=== PATIENT | female | born 1940 | race Two or more races ===

== ENCOUNTER 2023-12-13 13:29 | Emergency (ER) | payer OTHER ==
[~2023-12-13] VITALS: Ht 149.9 cm; Wt 54.1 kg
[2023-12-13] MEDS ORDERED: GLUCAGON EMERG KIT 1mg/1ml IV ONE (14:00)
[2023-12-13 14:14] LABS: Basophils # (auto) 0.1 10 ^3/uL (0-0.2); Eosinophils # (auto) 0.1 10 ^3/uL (0-0.8); Eosinophils % (auto) 1.2 % (0.0-7.0); Hematocrit 38.9 % (36.0-46.0); Hemoglobin 13.1 g/dL (12.2-16.2); Lymphocytes # (auto) 1.1 10 ^3/uL (0.4-5.4); Lymphocytes % (auto) 15.6 % (10.0-50.0); Mean Corpuscular Hemoglobin 29.7 pg (28.0-32.0); Mean Corpuscular Hgb Conc. 33.6 g/dL (32.0-36.0); Mean Corpuscular Volume 88.4 fL (80.0-100.0); Monocytes # (auto) 0.7 10 ^3/uL (0-1.3); Monocytes % (auto) 9.6 % (0.0-12.0); Neutrophils % (auto) 72.6 % (37.0-80.0); White Blood Cell 6.9 10^3/uL (4.4-10.8)
[2023-12-13 14:27] LABS: Chloride 105 mmol/L (98-107); Potassium 3.5 mmol/L (3.5-5.1); Sodium 140 mmol/L (136-145)
[2023-12-13 14:28] LABS: Anion Gap 7 (5-15); Carbon Dioxide 28 mmol/L (20-30)
[2023-12-13 14:29] LABS: Calcium 9.4 mg/dL (8.5-10.1)
[2023-12-13 14:33] LABS: BUN/Creatinine Ratio 19.2 (10.0-20.0); Blood Urea Nitrogen 14 mg/dL (9-23); Glucose 104 mg/dL (74-106)
[2023-12-13 14:36] LABS: INR 1.02 (0.9-1.15); Partial Thromboplastin Time 27.7 SEC (24.5-34.5); Prothrombin Time 10.7 sec (9.3-11.8)
[2023-12-13] MEDS ORDERED: LORazepam 2MG/ML-1ML VIAL IV ONE (16:00)
[2023-12-13 16:28] VITALS: PULSE 78; RESP 20; TEMP 98.1; O2SAT 95
[2023-12-13 19:36] VITALS: PULSE 71; RESP 12; O2SAT 95
[2023-12-13] MEDS ORDERED: ONDANSETRON HCL 4 MG/2 ML VIAL IV ONE (20:00)
[2023-12-13 20:28] VITALS: BP 145/62; PULSE 59; RESP 12; O2SAT 95
== END 2023-12-13 20:28 | disposition home or self-care (01) ==
LOC: ER 13:29
DX: T18.128A Food in esophagus causing other injury, initial encounter (principal); I10 Essential (primary) hypertension; Z90.710 Acquired absence of both cervix and uterus; Z79.01 Long term (current) use of anticoagulants; W44.F3XA Food entering into or through a natural orifice, initial encounter; Y93.89 Activity, other specified; Y92.89 Other specified places as the place of occurrence of the external cause; Y99.8 Other external cause status
CPT/HCPCS: 36415; 74176; 80048; 85025; 85610; 85730; 96374; 96375; 99285; J1610; J2405

== ENCOUNTER 2024-07-29 07:59 | Emergency (ER) | payer OTHER ==
[~2024-07-29] VITALS: Ht 152.4 cm; Wt 59.1 kg
[2024-07-29 09:35] VITALS: BP 92/71; PULSE 65; RESP 16; TEMP 97.9; O2SAT 96
[2024-07-29] MEDS ORDERED: IBUP1TAB5 PO (10:49)
[2024-07-29] MEDS ORDERED: HYDR-4902 PO (10:49)
== END 2024-07-29 11:25 | disposition home or self-care (01) ==
LOC: ER 07:59
DX: S82.191A Other fracture of upper end of right tibia, initial encounter for closed fracture (principal); Z90.710 Acquired absence of both cervix and uterus; W01.0XXA Fall on same level from slipping, tripping and stumbling without subsequent striking against object, initial encounter; Y93.89 Activity, other specified; Y92.89 Other specified places as the place of occurrence of the external cause; Y99.8 Other external cause status
CPT/HCPCS: 29505; 73562; 73700